=== PATIENT | female | born 1995 | race Caucasian/White ===

== ENCOUNTER 2017-12-20 16:18 | Emergency (ER) | payer OTHER ==
[~2017-12-20] VITALS: Ht 152.4 cm; Wt 78.9 kg
[2017-12-20 16:21] VITALS: Ht 152.4 cm; Wt 78.9 kg
[2017-12-20 18:46] VITALS: BP 99/64
== END 2017-12-20 18:46 | disposition home or self-care (01) ==
LOC: ED 16:18
DX: F41.9 Anxiety disorder, unspecified (principal)